=== PATIENT | female | born 1970 | race Caucasian/White ===

== ENCOUNTER → 2016-08-31 | Outpatient (CLI) | payer OTHER ==
--- NOTE | 2016-08-31 09:15 | MA ---
Screening Digital Mammogram Clinical Indications: Routine screening. Technique: Standard cephalocaudal and mediolateral oblique projections are obtained. This examinati on was processed by the [employer] computer aided detection system. Comparison: September 2015, March 2014, October 2012 and October 2011 Breast density: C; The breast tissue is heterogeneously dense, which could obscure detection of small masses. Findings: CAD was reviewed. No suspicious findings are identified. Impression: Negative mammogram. BI-RADS 1. Recommendation: Routine screening is recommended in one year, as long as physical examination is alessio ign in this patient with moderately dense breast parenchyma. [facility] will send a result letter to the patient. Negative mammography should not preclude additional workup of a clinically suspicious finding. The patient's information is entered into a reminder system with a target due date for her next mammo gram.
== END ==
LOC: CIMAGING 07:16
DX: Z12.31 Encounter for screening mammogram for malignant neoplasm of breast (principal)
CPT/HCPCS: G0202

== ENCOUNTER 2016-12-09 07:39 | Day surgery (SDC) | payer OTHER ==
[2016-12-09] MEDS ORDERED: FAMOTIDINE 20 MG TAB PO ONE (07:42)
[2016-12-09] MEDS ORDERED: DIAZEPAM 5 MG TAB PO ONE (07:42)
[2016-12-09] MEDS ORDERED: diphenhydrAMINE 25 MG CAP PO ONE (07:42)
[2016-12-09] MEDS ORDERED: ASPIRIN EC 325 MG TAB PO ONE (07:42)
[2016-12-09] MEDS ORDERED: NS 1,000 ML IV ONE (07:42)
--- NOTE | 2016-12-09 08:10 | CPEKG ---
Heart Rate: 67 RR Interval: 896 P-R Interval: 132 QRSD Interval: 84 QT Interval: 412 QTC Interval: 435 P Trezevant: 37 QRS Trezevant: 19 T Wave Trezevant: 64 EKG Severity - NORMAL ECG - EKG Impression: SINUS RHYTHM Electronically Signed By: Mari Chacko 09-Dec-2016 12:03:59
[2016-12-09 08:41] LABS: % IMMATURE GRANULYOCYTES 0.4 % (0.0-1.1); ABSOLUTE IMMATURE GRANULOCYTES 0.03 10^3/uL (0.00-0.10); ADD DIFF? NO; ADD MORPH? NO; ADD SCAN? NO; ATYPICAL LYMPHOCYTE FLAG 20 (0-99); FRAGMENT RBC FLAG 20 (0-99); HEMATOCRIT 40.8 % (38.0-47.0); LEFT SHIFT FLG 0 (0-99); LIPEMIA HEMOLYSIS FLAG 90 (0-99); MEAN CELL HEMOGLOBIN 32.6 pg (27.9-34.1); MEAN CELL HEMOGLOBIN CONCENTR. 34.3 g/dL (32.4-36.7); MEAN CELL VOLUME 95.1 fL (81.5-99.8); MEAN PLATELET VOLUME 9.5 fL (8.7-11.7); PLATELET CLUMPS FLAG 10 (0-99); PLATELET COUNT 385 10^3/uL (150-400); RED BLOOD CELL COUNT 4.29 10^6/uL (4.18-5.33)
[2016-12-09 08:58] LABS: ANION GAP 12 mEq/L (8-16); CALCIUM 9.3 mg/dL (8.5-10.4); CARBON DIOXIDE 27 mEq/l (22-31); CHLORIDE 103 mEq/L (97-110); CHOLESTEROL 155 mg/dL (140-200); CHOLESTEROL/HDL RATIO 2.46 RATIO (1.00-4.44); CREATININE 0.8 mg/dL (0.6-1.0); GLOMERULAR FILTRATION RATE > 60; GLUCOSE 78 mg/dL (70-100); HIGH DENSITY LIPOPROTEIN 63 mg/dL (40-95); LDL/HDL RATIO 1.11 RATIO (1.00-3.22); LOW DENSITY LIPOPROTEIN 70 mg/dL (70-100); MAGNESIUM 2.1 mg/dL (1.6-2.3); NON-HIGH DENSITY LIPOPROTEIN 92 mg/dL (90-129); POTASSIUM 3.3 mEq/L (3.5-5.2); SODIUM 142 mEq/L (134-144); TRIGLYCERIDE 114 mg/dL (35-135); VERY LOW DENSITY LIPOPROTEINS 22 mg/dL (8-25)
[2016-12-09 09:17] LABS: PROTIME(PATIENT) 13.1 SEC (12.0-15.0)
[2016-12-09] MEDS ORDERED: LIDOCAINE 1% 30 ML SDV ONE (10:32)
[2016-12-09] MEDS ORDERED: HEPARIN 10,000 UNIT/10 ML MDV ONE (10:33)
[2016-12-09] MEDS ORDERED: MIDAZOLAM 2 MG/2 ML VIAL ONE ×2 (10:33→11:43)
[2016-12-09] MEDS ORDERED: fentaNYL 100 MCG/2 ML INJ ONE ×2 (10:33→11:44)
[2016-12-09] MEDS ORDERED: VERAPAMIL 5 MG/2 ML VIAL ONE (10:33)
[2016-12-09] MEDS ORDERED: ETOMIDATE 40 MG/20 ML INJ ONE (11:49)
--- NOTE | 2016-12-09 12:42 | PDDXCAT ---
Diagnostic Cath Note - . Date: 12/09/16 Intervention: None *Procedure 1. selective coronary angiography 2. left heart catheterization 3. left ventriculogram Indication: History of coronary artery disease on the basis of a positive calcium score, hypertension and hyperlipidemia. She is also having angina at rest CCS IV and had an intermediate risk MPI study. Access: Right radial artery (A plethysmography trace assisted Jorge's Test was used to document dual artery supply to the hand and index finger prior to access ). *Materials Left Heart Cath size: 5F Left Heart Cath materials: JL3.5, JR4.0, Pigtail *Findings-Selective Coronary Angiography LM: The left main is, ~6 mm in size and bifurcates into an LAD and circumflex system. There is no flow-limiting disease. LAD: The proximal LAD is ~3.5 mm in size. Maximal luminal stenosis is 10% in the proximal vessel. There is no flow-limiting disease with SILVINO III flow throughout. LCX: The proximal LCx is ~3.5 mm in size. There is no flow-limiting disease with SILVINO III flow throughout. RCA: The right coronary artery ~3 mm in size and dominant (gives rise to PDA and PLV branches). There is no flow-limiting disease with SILVINO III flow throughout. *Findings-Left Heart Catheterization EDP: 20 mmHg LVEF: 65% AO: 117/71/92 mmHg LVG: The visualized portion of the thoracic aorta appears to be within normal limits in size without evidence of kash dissection or aneurysm. There is normal LV systolic function with ejection fraction estimated to be 65% without segmental wall motion abnormalities. *Summary Complications: None Estimated blood loss: <50ml Closure method: TR Band Assessment/Conclusion: 1. Non-flow limiting coronary artery disease with maximal luminal stenosis of 10 % in the proximal LAD with SILVINO III flow throughout the right-dominant system. There was no flow-limiting disease and intervention was not warranted. The patient's coronary artery disease should be managed medically to achieve a non- HDL cholesterol <100 mg/dL. Of note is that the patient's coronary arteries are very tortuous and this tortuosity results in "kinking" of the LAD in its distal third. Extreme tortuosity is a known risk factor for SCAD. (Spontaneous coronary artery dissection.) 2. Normal LV systolic function without segmental wall motion abnormalities on left ventriculogram. Ejection fraction 65%.
[2016-12-09] MEDS ORDERED: NITROGLYCERIN 0.4 MG BTL SL PRN (13:53)
[2016-12-09] MEDS ORDERED: HYDROCODONE/APAP 5/325 TAB PO PRN (13:53)
[2016-12-09] MEDS ORDERED: ATROPINE SULFATE 1 MG/10 ML SYR IVP PRN (13:53)
[2016-12-09] MEDS ORDERED: OXYCODONE/APAP 5/325 TAB PO PRN (13:53)
[2016-12-09] MEDS ORDERED: ONDANSETRON 4 MG/2 ML VIAL IVP PRN (13:53)
[2016-12-09] MEDS ORDERED: ACETAMINOPHEN 325 MG TAB ONE (14:20)
[2016-12-09 16:27] VITALS: BP 133/85; RESP 21; O2SAT 97
== END 2016-12-09 16:28 | disposition home or self-care (01) ==
LOC: FCATH 07:39
PROVIDERS: ATTEND Internal Medicine Cardiovascular Disease
PROC: B2111ZZ Fluoroscopy of Multiple Coronary Arteries using Low Osmolar Contrast (ICD-10-PCS; principal; 2016-12-09)
PROC: 4A023N7 Measurement of Cardiac Sampling and Pressure, Left Heart, Percutaneous Approach (ICD-10-PCS; principal; 2016-12-09)
PROC: B2151ZZ Fluoroscopy of Left Heart using Low Osmolar Contrast (ICD-10-PCS; principal; 2016-12-09)
DX: I25.10 Atherosclerotic heart disease of native coronary artery without angina pectoris (principal); I10 Essential (primary) hypertension; E78.5 Hyperlipidemia, unspecified; Z82.49 Family history of ischemic heart disease and other diseases of the circulatory system
CPT/HCPCS: 93005; 93458; C1769; J1644; J2250; J3010

== ENCOUNTER → 2017-09-01 | Outpatient (CLI) | payer OTHER | LOC: CIMAGING 14:38 | PROVIDERS: ATTEND Obstetrics & Gynecology Gynecology | DX: Z12.31 Encounter for screening mammogram for malignant neoplasm of breast (principal) ==

== ENCOUNTER → 2018-09-11 | Outpatient (CLI) | payer OTHER | LOC: CIMAGING 12:01 | PROVIDERS: ATTEND Obstetrics & Gynecology Gynecology | DX: Z12.31 Encounter for screening mammogram for malignant neoplasm of breast (principal); Z80.3 Family history of malignant neoplasm of breast; N64.89 Other specified disorders of breast ==

== ENCOUNTER → 2018-09-14 | Outpatient (CLI) | payer OTHER | LOC: BRMIMAGING 08:49 | PROVIDERS: ATTEND Physician Assistant Medical | DX: R92.8 Other abnormal and inconclusive findings on diagnostic imaging of breast (principal) | CPT/HCPCS: 76641-PO ==